=== PATIENT | female | born 1960 | race Caucasian/White ===

== ENCOUNTER 2024-01-15 23:29 | Emergency (ER) | payer BC, SELFPAY ==
[2024-01-15 23:43] VITALS: BP 106/55
[2024-01-16] MEDS: NORCO 5/325 1 TABLET PO (00:40)
--- NOTE | 2024-01-16 00:45 | ED.GENMED ---
History of Present Illness
General
Chief Complaint: Fall
Source: patient and spouse
Time Seen by Provider: 01/16/24 00:09
Travel History
Have you had any contact with someone who has COVID-19?: No
Do you have any symptoms of coronavirus? Fever > 100 degrees, chills, cough, shortness of breath, sore throat, loss of taste or smell, muscle aches, or headache?: No
History of Present Illness
History of Present Illness:
63-year-old female presents after a fall. The patient states she slipped on her brick patio that must of had ice. Patient complains of right wrist pain she denies head injury or neck pain. No back pain. Tingling. No loss of consciousness.
Past History
Past History
ED Past Medical History: Fibromyalgia and Hypercholesterolemia
ED Past Surgical History:
Phy Exam
Physical Exam
Physical Exam:
CONSTITUTIONAL Vital signs reviewed, Patient alert and oriented to person, place and time. Well-appearing
HEAD atraumatic, normocephalic.
EYES eyelids normal to inspection, Extraocular muscles intact, Conjunctiva normal, Sclera normal.
NECK normal range of motion, Trachea midline, no jugular venous distention.
RESP no respiratory distress
BACK No obvious deformities
UPPER EXTREMITY Gross Range of motion normal, gross motor strength normal, distal wrist with moderate distal tenderness. Ulna nontender, left proximal nontender metacarpals nontender, hand otherwise uninjured. Normal distal cap refill
LOWER EXTREMITY Gross range of motion normal, Gross motor strength normal
NEURO Speech normal, No focal motor deficits include, Howell coma scale 15, Memory normal, Cranial Nerves intact to screening exam.
SKIN Skin warm, dry, and normal in color.
PSYCHIATRIC Patient oriented to person place and time, Normal affect.
Course
Orders/Labs/Results
Orders:
Orders
01/15/24 23:49
Wrist, Right 3 Views [CR Wrist - Right Min 3 Views] Urgent
Comment:
Reason For Exam: fell, + swelling and pain
01/16/24 00:34
Splints/Slings/Crut- Treatment ONCE
Location: Right
Type of Splint: Volar
Hydrocodone 5/APAP 325 [[place] 5/325] 1 tablet PO NOW STA
Vital Signs
Initial and Last Documented VS:
Initial Vital Signs
Temp Pulse Resp BP Pulse Ox
98.9 F 81 16 106/55 97
01/15/24 23:43 01/15/24 23:43 01/15/24 23:43 01/15/24 23:43 01/15/24 23:43
Last Documented Vital Signs
Temp Pulse Resp BP Pulse Ox
98.9 F 81 16 106/55 97
01/15/24 23:43 01/15/24 23:43 01/15/24 23:43 01/15/24 23:43 01/15/24 23:43
MDM/Problems Addressed
MDM/Problems Addressed:
Distal radius fracture
*Radiology
Radiology exam reviewed: preliminary read by ED provider (Nondisplaced distal radius)
*Pulse Oximetry
Patient hypoxic: no
*Critical Care Note
Total Time (30-74mins, 75-104mins- exclusive of procedures): Not Applicable
Data Reviewed
Source: patient and spouse
Further Testing Considered But Not Given:
Considered elbow imaging but elbow unaffected, shoulder unaffected, clavicle nontender
Patient Management
Escalation/DeEscalation of care consider admission/obs:
Splint, and outpatient orthopedic follow-up.
ED Attending Note
-
Portions of this chart may have been created with voice recognition software.� Occasional wrong word or��sound alike� substitutions may have occurred due to the inherent limitations of voice recognition software.
Discharge Plan
Departure
Patient Disposition: Home (Routine Discharge)
Date of Disposition: 01/16/24
Time of Disposition: 00:49
Patient with high blood pressure during this ER visit?: No
Discharge Problem:
Distal radial fracture
Instructions: Radius Fracture (DC)
Prescriptions:
New
hydrocodone-acetaminophen 5-325 mg tablet
1 tab PO Q6H PRN (Reason: Pain) Qty: 10 0RF
Referrals:
Fazal Watt MD [Active] -
UNKNOWN - PT NOT,INTERVIEWE [Family Provider] -
Activity Restrictions/Additional Instructions:
Please ice and elevate your injured wrist. Please see orthopedics next 1 week for follow-up and reevaluation. Return admitted for numbness, tingling, worsening pain or any other concerns.
Interventions
Interventions:
*Risk Screen - Suicide Last Done: 01/16/24 00:42
*General Assessment Last Done: 01/16/24 00:42
*Neglect/Abuse Screening Last Done: 01/16/24 00:42
*ED COVID-19 Vaccine History Last Done: 01/16/24 00:42
ED-Musculoskeletal Assessment Last Done: 01/16/24 00:45
ED- Neurological Assessment Last Done: 01/16/24 00:45
ED-Skin Assessment Last Done: 01/16/24 00:45
== END 2024-01-16 01:32 | disposition home or self-care (01) ==
LOC: EMR 23:29
PROVIDERS: EMERGENCY PHYSICIAN Emergency Medicine
DX: S52.591A Other fractures of lower end of right radius, initial encounter for closed fracture (principal); W18.39XA Other fall on same level, initial encounter; Y92.008 Other place in unspecified non-institutional (private) residence as the place of occurrence of the external cause; E78.00 Pure hypercholesterolemia, unspecified; M79.7 Fibromyalgia; Z88.5 Allergy status to narcotic agent; Z88.0 Allergy status to penicillin
CPT/HCPCS: 99283; 29125; 73110

== ENCOUNTER → 2024-01-25 10:48 | Outpatient (REF) | payer BC, SELFPAY ==
[2024-01-25 12:41] LABS: Blood Urea Nitrogen 19 mg/dl (7-17); Calcium 9.9 mg/dl (8.4-10.2); Carbon Dioxide 29 mmol/L (22-30); Chloride 100 mmol/L (98-107); Glucose 113 mg/dl (70-99); Potassium 4.2 mmol/L (3.5-5.1); Sodium 140 mmol/L (135-145); eGFR > 60.00
== END ==
LOC: RCS 10:48
PROVIDERS: ATTENDING PHYSICIAN Orthopaedic Surgery
DX: Z01.818 Encounter for other preprocedural examination (principal)
CPT/HCPCS: 36415; 80048; 93005